=== PATIENT | male | born 2005 | race Caucasian/White ===

== ENCOUNTER 2024-02-16 18:47 | Emergency (ER) | payer OTHER ==
[~2024-02-16] VITALS: Ht 185.4 cm; Wt 68.0 kg
[2024-02-16] MEDS ORDERED: HYDROCODONE/APAP 5/325MG TABLET ONE ×2 (20:27→20:28)
[2024-02-16] MEDS: HYDROCODONE/APAP 5/325MG TABLET PO ONE (20:30)
[2024-02-16] MEDS ORDERED: KETO10TA2 PO (22:26)
[2024-02-16 22:34] VITALS: BP 124/87; TEMP 98.4; O2SAT 98
== END 2024-02-16 22:34 | disposition home or self-care (01) ==
LOC: ER 18:55
DX: M54.2 Cervicalgia (principal); R51.9 Headache, unspecified; M25.511 Pain in right shoulder; V49.49XA Driver injured in collision with other motor vehicles in traffic accident, initial encounter; Y93.89 Activity, other specified; Y92.488 Other paved roadways as the place of occurrence of the external cause; Y99.8 Other external cause status
CPT/HCPCS: 70450-TC; 72125-TC